=== PATIENT | male | born 1945 | race Caucasian/White ===

== ENCOUNTER 2020-09-10 21:43 | Inpatient (IN) ==
[2020-09-11] MEDS ORDERED: ONDANSETRON 4 MG/2 ML VIAL IV STA (00:22)
[2020-09-11] MEDS ORDERED: SODIUM CHLORIDE 0.9% 1,000 ML IV STA (00:22)
[2020-09-11 01:02] LABS: Basophils % 0.2 % (0.0-0.8); Hematocrit 51.2 VOL% (42.0-52.0); Hemoglobin 16.9 GM/DL (14.0-18.0); Immature Granulocytes % 0.4 %; Immature Granulocytes Absolute 0.04 #; Lymphocytes # 0.7 10*3/uL (1.4-4.0); Lymphocytes % 6.3 % (21.2-54.2); Mean Corpuscular Volume 89.8 FL (87-102); Mean Platelet Volume 10.1 FL (9.6-12.0); Monocytes % 11.3 % (1.7-12.7); Neutrophils % 81.8 % (38.7-73.9); Platelet Count 248 T/CUMM (130-400); Red Cell Distribution Width 16.4 % (9.3-17.3); White Blood Count 11.2 T/CUMM (4-12)
[2020-09-11] MEDS ORDERED: metroNIDAZOLE INJ 500 MG/100 ML PREMIX IV STA (01:10)
[2020-09-11 01:39] LABS: Albumin 3.6 G/DL (3.4-5.0); Bilirubin,Total 0.4 MG/DL (0.20-1.00); Calcium 10.5 MG/DL (8.5-10.1); Osmolality,Calculated 277.8 MOS/KG (273-304); Potassium 3.6 MMOL/L (3.5-5.1)
[2020-09-11 02:52] LABS: Bilirubin,Urine Negative (Negative); Blood, Urine Small mg/dL (Negative); Glucose,Urine (UA) Negative (Negative); Ketones,Urine Negative (Negative); Mucus,Urine Occasional /LPF (Occasional); Nitrite,Urine Negative (Negative); Protein,Urine 30 MG/DL; RBC,Urine 2 /HPF (0-4); Urine Appearance CLEAR (Clear); Urine Color Yellow (Yellow); Urine Specific Gravity 1.018 (1.001-1.035); Urine Urobilinogen < 2.0 EU/DL (0.2-1.0)
[2020-09-11] MEDS ORDERED: ONDANSETRON 4 MG/2 ML VIAL IV PRN (05:14)
[2020-09-11] MEDS ORDERED: GLUCAGON 1 MG VIAL IM PRN (05:14)
[2020-09-11] MEDS ORDERED: hydrALAZINE 20 MG/1 ML VIAL IV PRN (05:14)
[2020-09-11] MEDS ORDERED: diphenhydrAMINE CAP 25 MG CAPSULE PO PRN (05:14)
[2020-09-11] MEDS ORDERED: DEXTROSE 50% 25 GM/50 ML VIAL IV PRN (05:14)
[2020-09-11] MEDS ORDERED: SODIUM CHLORIDE 0.9% 1,000 ML IV SCH (05:30)
[2020-09-11] MEDS: ACETAMINOPHEN 325 MG TABLET PO PRN ×3 (06:45→22:00)
[2020-09-11] MEDS: CLOPIDOGREL 75 MG TABLET PO SCH (09:45)
[2020-09-11] MEDS: amLODIPine 5 MG TABLET PO SCH (09:45)
[2020-09-11] MEDS: hydrALAZINE 25 MG TABLET PO SCH ×3 (09:45→22:00)
[2020-09-11] MEDS: TAMSULOSIN 0.4 MG CAPSULE PO SCH (09:45)
[2020-09-11] MEDS: LEVOFLOXACIN INJ 500 MG/100 ML PREMIX IV SCH (11:00)
[2020-09-11] MEDS: SODIUM CHLORIDE 0.9% 1,000 ML IV SCH (11:00)
[2020-09-11] MEDS: metroNIDAZOLE INJ 500 MG/100 ML PREMIX IV SCH ×2 (12:00→22:00)
[2020-09-11] MEDS ORDERED: metroNIDAZOLE INJ 500 MG/100 ML PREMIX IV SCH (14:00)
[2020-09-11] MEDS: SIMVASTATIN 10 MG TABLET PO SCH (22:00)
[2020-09-12] MEDS: metroNIDAZOLE INJ 500 MG/100 ML PREMIX IV SCH ×3 (04:54→20:29)
[2020-09-12] MEDS: SODIUM CHLORIDE 0.9% 1,000 ML IV SCH (04:55)
[2020-09-12 05:23] LABS: Basophils % 0.2 % (0.0-0.8); Hematocrit 43.9 VOL% (42.0-52.0); Hemoglobin 14.9 GM/DL (14.0-18.0); Immature Granulocytes % 0.5 %; Immature Granulocytes Absolute 0.05 #; Lymphocytes # 0.6 10*3/uL (1.4-4.0); Mean Corpuscular HGB Conc 33.9 GM/DL (32-36); Mean Corpuscular Volume 89.8 FL (87-102); Mean Platelet Volume 10.2 FL (9.6-12.0); Monocytes % 10.3 % (1.7-12.7); Platelet Count 175 T/CUMM (130-400); Red Blood Count 4.89 MC/CUMM (3.8-5.5); White Blood Count 9.1 T/CUMM (4-12)
[2020-09-12 05:51] LABS: Albumin 2.6 G/DL (3.4-5.0); Calcium 8.9 MG/DL (8.5-10.1); Osmolality,Calculated 282.3 MOS/KG (273-304); Total Protein 5.4 G/DL (6.4-8.2)
[2020-09-12] MEDS ORDERED: POTASSIUM CHLORIDE 20 MEQ TABLET PO ONE (07:38)
[2020-09-12] MEDS: hydrALAZINE 25 MG TABLET PO SCH ×3 (08:59→20:28)
[2020-09-12] MEDS: amLODIPine 5 MG TABLET PO SCH (08:59)
[2020-09-12] MEDS: CLOPIDOGREL 75 MG TABLET PO SCH (08:59)
[2020-09-12] MEDS: EZETIMIBE 10 MG TABLET PO SCH (09:00)
[2020-09-12] MEDS: TAMSULOSIN 0.4 MG CAPSULE PO SCH (09:00)
[2020-09-12] MEDS: SODIUM CHLOR 0.9% KCL 40 MEQ 40 MEQ/1,000 ML BAG IV SCH (09:53)
[2020-09-12] MEDS: LEVOFLOXACIN INJ 500 MG/100 ML PREMIX IV SCH (11:02)
[2020-09-12] MEDS: ACETAMINOPHEN 325 MG TABLET PO PRN (12:11)
[2020-09-12] MEDS: SIMVASTATIN 10 MG TABLET PO SCH (20:28)
[2020-09-13] MEDS: SODIUM CHLOR 0.9% KCL 40 MEQ 40 MEQ/1,000 ML BAG IV SCH ×3 (02:26→20:24)
[2020-09-13] MEDS: metroNIDAZOLE INJ 500 MG/100 ML PREMIX IV SCH ×3 (03:39→20:22)
[2020-09-13 06:48] LABS: Basophils % 0.4 % (0.0-0.8); Eosinophils # 0.1 10*3/uL (0.0-0.87); Eosinophils % 0.7 % (0.00-10.9); Hematocrit 45.9 VOL% (42.0-52.0); Hemoglobin 15.2 GM/DL (14.0-18.0); Immature Granulocytes % 0.6 %; Immature Granulocytes Absolute 0.04 #; Lymphocytes % 14.8 % (21.2-54.2); Mean Corpuscular HGB Conc 33.1 GM/DL (32-36); Mean Platelet Volume 10.4 FL (9.6-12.0); Monocytes % 14.4 % (1.7-12.7); Neutrophils % 69.1 % (38.7-73.9); Platelet Count 186 T/CUMM (130-400); Red Cell Distribution Width 16.1 % (9.3-17.3)
[2020-09-13 07:16] LABS: Calcium 9.2 MG/DL (8.5-10.1); Potassium 3.8 MMOL/L (3.5-5.1)
[2020-09-13] MEDS: CLOPIDOGREL 75 MG TABLET PO SCH (09:07)
[2020-09-13] MEDS: EZETIMIBE 10 MG TABLET PO SCH (09:07)
[2020-09-13] MEDS: TAMSULOSIN 0.4 MG CAPSULE PO SCH (09:07)
[2020-09-13] MEDS: hydrALAZINE 25 MG TABLET PO SCH ×3 (09:33→20:24)
[2020-09-13] MEDS: amLODIPine 5 MG TABLET PO SCH (09:33)
[2020-09-13] MEDS: LEVOFLOXACIN INJ 500 MG/100 ML PREMIX IV SCH (11:35)
[2020-09-13] MEDS: ACETAMINOPHEN 325 MG TABLET PO PRN (16:28)
[2020-09-13] MEDS: SIMVASTATIN 10 MG TABLET PO SCH (20:24)
[2020-09-14] MEDS: metroNIDAZOLE INJ 500 MG/100 ML PREMIX IV SCH (04:58)
[2020-09-14 06:48] LABS: Basophils % 0.5 % (0.0-0.8); Eosinophils # 0.1 10*3/uL (0.0-0.87); Eosinophils % 1.9 % (0.00-10.9); Hemoglobin 14.9 GM/DL (14.0-18.0); Immature Granulocytes % 0.7 %; Immature Granulocytes Absolute 0.04 #; Lymphocytes # 0.9 10*3/uL (1.4-4.0); Lymphocytes % 15.5 % (21.2-54.2); Mean Corpuscular HGB Conc 33.1 GM/DL (32-36); Mean Corpuscular Volume 89.5 FL (87-102); Mean Platelet Volume 10.6 FL (9.6-12.0); Monocytes % 10.1 % (1.7-12.7); Neutrophils % 71.3 % (38.7-73.9); Platelet Count 193 T/CUMM (130-400); Red Blood Count 5.03 MC/CUMM (3.8-5.5); Red Cell Distribution Width 16.2 % (9.3-17.3); White Blood Count 5.9 T/CUMM (4-12)
[2020-09-14 07:14] LABS: Osmolality,Calculated 282.1 MOS/KG (273-304); Potassium 4.8 MMOL/L (3.5-5.1)
[2020-09-14] MEDS: SODIUM CHLOR 0.9% KCL 40 MEQ 40 MEQ/1,000 ML BAG IV SCH (07:56)
[2020-09-14] MEDS ORDERED: LEVOFLOXACIN 500 MG TABLET PO SCH (09:00)
[2020-09-14] MEDS: EZETIMIBE 10 MG TABLET PO SCH (09:33)
[2020-09-14] MEDS: amLODIPine 5 MG TABLET PO SCH (09:34)
[2020-09-14] MEDS: TAMSULOSIN 0.4 MG CAPSULE PO SCH (09:35)
[2020-09-14] MEDS: hydrALAZINE 25 MG TABLET PO SCH (09:35)
[2020-09-14] MEDS: CLOPIDOGREL 75 MG TABLET PO SCH (09:36)
[2020-09-14 11:38] VITALS: BP 161/75
[2020-09-14] MEDS ORDERED: metroNIDAZOLE 500 MG TABLET PO SCH (14:00)
== END 2020-09-14 12:25 | disposition home or self-care (01) | DRG 392 ==
LOC: N.ED 21:43 → N.EDINP 21:43 → SUATTDRO 09-11 05:14 → N.3E 09-11 10:46 → SUATTDRO 09-12 09:07
PROVIDERS: ADMIT Internal Medicine; ATTEND Internal Medicine

== ENCOUNTER 2021-10-01 12:23 | Inpatient (IN) ==
[2021-10-01] MEDS ORDERED: SODIUM CHLORIDE 0.9% 1,000 ML IV STA ×2 (15:10→16:28)
[2021-10-01 15:59] LABS: Basophils # 0.1 10*3/uL (0.0-0.2); Basophils % 0.3 % (0.0-0.8); Eosinophils % 0.1 % (0.00-10.9); Hematocrit 46.1 VOL% (42.0-52.0); Hemoglobin 16.2 GM/DL (14.0-18.0); Immature Granulocytes % 0.8 %; Immature Granulocytes Absolute 0.12 #; Lymphocytes # 1.5 10*3/uL (1.4-4.0); Mean Corpuscular HGB Conc 35.1 GM/DL (32-36); Mean Corpuscular Volume 89.7 FL (87-102); Mean Platelet Volume 10.4 FL (9.6-12.0); Monocytes # 1.9 10*3/uL (0.11-0.8); Monocytes % 12.7 % (1.7-12.7); Neutrophils % 76.1 % (38.7-73.9); Platelet Count 491 T/CUMM (130-400); Red Blood Count 5.14 MC/CUMM (3.8-5.5); Red Cell Distribution Width 14.8 % (9.3-17.3); White Blood Count 15.1 T/CUMM (4-12)
[2021-10-01 16:21] LABS: Albumin 3.2 G/DL (3.4-5.0); Bilirubin,Total 0.4 MG/DL (0.20-1.00); Calcium 12.7 MG/DL (8.5-10.1); Osmolality,Calculated 293.2 MOS/KG (273-304); Total Protein 6.4 G/DL (6.4-8.2)
[2021-10-01] MEDS ORDERED: POTASSIUM CHLORIDE 20 MEQ TABLET PO STA (16:25)
[2021-10-01] MEDS ORDERED: SIMETHICONE CHEW 125 MG TABLET PO PRN (16:57)
[2021-10-01] MEDS ORDERED: BISACODYL 5 MG TABLET PO PRN (16:57)
[2021-10-01] MEDS ORDERED: ALUMINUM/MAGNES/SIMETH MAX STR 30 ML UDCUP PO PRN (16:57)
[2021-10-01] MEDS ORDERED: ONDANSETRON 4 MG/2 ML VIAL IV PRN (16:57)
[2021-10-01] MEDS ORDERED: GLUCAGON 1 MG VIAL IM PRN (16:57)
[2021-10-01] MEDS ORDERED: ALBUTEROL 2.5 MG/3 ML NEB RESP TX PRN (16:57)
[2021-10-01] MEDS ORDERED: SODIUM CHLORIDE 0.9% 1,000 ML IV SCH (17:00)
[2021-10-01] MEDS ORDERED: DEXTROSE 10% 250 ML BAG IV PRN (17:04)
[2021-10-01 18:50] LABS: RBC,Urine 1 /HPF (0-4)
[2021-10-01 18:51] LABS: Bilirubin,Urine Negative (Negative); Blood, Urine Negative (Negative); Glucose,Urine (UA) >=1000 mg/dL (Negative); Ketones,Urine Negative (Negative); Nitrite,Urine Negative (Negative); Protein,Urine Negative (Negative); Urine Appearance Clear (Clear); Urine Color Yellow (Yellow); Urine Specific Gravity 1.015 (1.001-1.035); Urine Urobilinogen 0.2 eU/dL (<2.0)
[2021-10-01] MEDS: POTASSIUM CHLORIDE RIDER 10 MEQ/100 ML PREMIX IV SCH ×2 (18:52→20:21)
[2021-10-01 20:22] LABS: Calcium 11.4 MG/DL (8.5-10.1); Osmolality,Calculated 293.2 MOS/KG (273-304)
[2021-10-01 20:33] LABS: Potassium 2.5 MMOL/L (3.5-5.1)
[2021-10-01] MEDS ORDERED: POTASSIUM CHLORIDE 20 MEQ TABLET PO ONE (20:39)
[2021-10-01] MEDS: DOCUSATE SODIUM 100 MG CAPSULE PO SCH (21:41)
[2021-10-01] MEDS: SUCRALFATE 1 GM TABLET PO SCH (21:41)
[2021-10-01] MEDS: INSULIN GLARGINE 100 UNIT/ML SUBCUT SCH (21:41)
[2021-10-01] MEDS: INSULIN REGULAR 100 UNIT/ML SUBCUT SCH (21:42)
[2021-10-01] MEDS: POTASSIUM BICARB EFFERVESCENT 20 MEQ TAB.EFF PO SCH (22:06)
[2021-10-01] MEDS: SODIUM CHLOR 0.9% KCL 20 MEQ 20 MEQ/1,000 ML BAG IV SCH (22:25)
[2021-10-02 01:04] LABS: Basophils % 0.3 % (0.0-0.8); Eosinophils # 0.1 10*3/uL (0.0-0.87); Eosinophils % 0.8 % (0.00-10.9); Hematocrit 42.2 VOL% (42.0-52.0); Hemoglobin 14.7 GM/DL (14.0-18.0); Immature Granulocytes % 0.7 %; Immature Granulocytes Absolute 0.08 #; Lymphocytes # 1.8 10*3/uL (1.4-4.0); Lymphocytes % 15.3 % (21.2-54.2); Mean Corpuscular HGB Conc 34.8 GM/DL (32-36); Mean Corpuscular Volume 90.8 FL (87-102); Mean Platelet Volume 10.3 FL (9.6-12.0); Monocytes # 1.3 10*3/uL (0.11-0.8); Monocytes % 10.7 % (1.7-12.7); Neutrophils % 72.2 % (38.7-73.9); Platelet Count 411 T/CUMM (130-400); Red Blood Count 4.65 MC/CUMM (3.8-5.5); Red Cell Distribution Width 14.9 % (9.3-17.3); White Blood Count 11.8 T/CUMM (4-12)
[2021-10-02 01:30] LABS: Calcium 11.7 MG/DL (8.5-10.1); Risk Ratio 2.37; Thyroid Stimulating Hormone 1.28 uIU/ml (0.358-3.74); VLDL Cholesterol 22.8 MG/DL
[2021-10-02 01:32] LABS: Potassium 2.4 MMOL/L (3.5-5.1)
[2021-10-02] MEDS: POTASSIUM CHLORIDE RIDER 10 MEQ/100 ML PREMIX IV PRN ×9 (01:51→23:59)
[2021-10-02] MEDS: INSULIN REGULAR 100 UNIT/ML SUBCUT SCH ×4 (08:05→20:41)
[2021-10-02] MEDS: POTASSIUM BICARB EFFERVESCENT 20 MEQ TAB.EFF PO SCH ×2 (08:44→21:47)
[2021-10-02] MEDS: EZETIMIBE 10 MG TABLET PO SCH (08:44)
[2021-10-02] MEDS: PANTOPRAZOLE 40 MG TABLET PO SCH (08:44)
[2021-10-02] MEDS: ASPIRIN 325 MG TABLET PO SCH (08:44)
[2021-10-02] MEDS: DOCUSATE SODIUM 100 MG CAPSULE PO SCH ×2 (08:44→20:41)
[2021-10-02] MEDS: CETIRIZINE 10 MG TABLET PO SCH (08:44)
[2021-10-02] MEDS: MONTELUKAST 10 MG TABLET PO SCH (08:44)
[2021-10-02] MEDS: THEOPHYLLINE ER (24 HR) 400 MG TABLET PO SCH (08:44)
[2021-10-02] MEDS: SUCRALFATE 1 GM TABLET PO SCH ×4 (08:44→20:41)
[2021-10-02] MEDS: TAMSULOSIN 0.4 MG CAPSULE PO SCH (08:44)
[2021-10-02] MEDS: hydrALAZINE 25 MG TABLET PO SCH ×2 (08:47→20:41)
[2021-10-02] MEDS ORDERED: POTASSIUM CHLORIDE 20 MEQ TABLET PO ONE (10:00)
[2021-10-02] MEDS: ACETAMINOPHEN 325 MG TABLET PO PRN ×2 (12:26→20:39)
[2021-10-02] MEDS: LACTULOSE 20 GM/30 ML UDCUP PO SCH ×2 (12:27→20:39)
[2021-10-02 13:06] LABS: Arterial Base Excess iSTAT 14 MMOL/L (-2.5-2.5); Arterial Bicarbonate iSTAT 38.8 MMOL/L (20-26); Arterial O2 Saturation iSTAT 96 % (95-100); Arterial PCO2 iSTAT 45 MM HG (35-48); Arterial PO2 iSTAT 76 MM HG (80-95); Arterial Total CO2 iSTAT 40 MMO/L (23-27); Arterial pH iSTAT 7.542 (7.35-7.45)
[2021-10-02] MEDS: INSULIN GLARGINE 100 UNIT/ML SUBCUT SCH (20:42)
[2021-10-03] MEDS: POTASSIUM CHLORIDE RIDER 10 MEQ/100 ML PREMIX IV PRN (02:12)
[2021-10-03 06:55] LABS: Basophils # 0.1 10*3/uL (0.0-0.2); Basophils % 0.8 % (0.0-0.8); Eosinophils # 0.2 10*3/uL (0.0-0.87); Hematocrit 46.5 VOL% (42.0-52.0); Hemoglobin 15.6 GM/DL (14.0-18.0); Immature Granulocytes % 0.5 %; Immature Granulocytes Absolute 0.05 #; Lymphocytes # 1.7 10*3/uL (1.4-4.0); Lymphocytes % 18.3 % (21.2-54.2); Mean Corpuscular HGB Conc 33.5 GM/DL (32-36); Mean Corpuscular Volume 94.5 FL (87-102); Mean Platelet Volume 10.3 FL (9.6-12.0); Monocytes # 0.9 10*3/uL (0.11-0.8); Monocytes % 9.9 % (1.7-12.7); Neutrophils % 68.5 % (38.7-73.9); Platelet Count 398 T/CUMM (130-400); Red Blood Count 4.92 MC/CUMM (3.8-5.5); White Blood Count 9.1 T/CUMM (4-12)
[2021-10-03 07:12] LABS: Phosphorous 2.1 MG/DL (2.5-4.9); Uric Acid 10.3 MG/DL (3.5-7.2)
[2021-10-03 07:14] LABS: Albumin 2.9 G/DL (3.4-5.0); Bilirubin,Total 0.4 MG/DL (0.20-1.00); Calcium 12.7 MG/DL (8.5-10.1); Potassium 3.3 MMOL/L (3.5-5.1); Total Protein 5.4 G/DL (6.4-8.2)
[2021-10-03 07:23] LABS: Total Protein 5.8 G/DL (6.4-8.2)
[2021-10-03] MEDS: SODIUM CHLOR 0.9% KCL 20 MEQ 20 MEQ/1,000 ML BAG IV SCH ×3 (08:00→15:02)
[2021-10-03] MEDS: INSULIN REGULAR 100 UNIT/ML SUBCUT SCH ×4 (08:02→21:20)
[2021-10-03] MEDS: EZETIMIBE 10 MG TABLET PO SCH (09:48)
[2021-10-03] MEDS: CETIRIZINE 10 MG TABLET PO SCH (09:48)
[2021-10-03] MEDS: MONTELUKAST 10 MG TABLET PO SCH (09:48)
[2021-10-03] MEDS: LACTULOSE 20 GM/30 ML UDCUP PO SCH (09:48)
[2021-10-03] MEDS: hydrALAZINE 25 MG TABLET PO SCH ×2 (09:48→21:24)
[2021-10-03] MEDS: THEOPHYLLINE ER (24 HR) 400 MG TABLET PO SCH (09:48)
[2021-10-03] MEDS: PANTOPRAZOLE 40 MG TABLET PO SCH (09:48)
[2021-10-03] MEDS: DOCUSATE SODIUM 100 MG CAPSULE PO SCH ×2 (09:48→21:23)
[2021-10-03] MEDS: TAMSULOSIN 0.4 MG CAPSULE PO SCH (09:48)
[2021-10-03] MEDS: POTASSIUM BICARB EFFERVESCENT 20 MEQ TAB.EFF PO SCH ×2 (09:48→21:21)
[2021-10-03] MEDS: SUCRALFATE 1 GM TABLET PO SCH ×4 (09:48→21:24)
[2021-10-03] MEDS: ASPIRIN 325 MG TABLET PO SCH (09:48)
[2021-10-03] MEDS ORDERED: LACTULOSE 20 GM/30 ML UDCUP PO PRN (11:53)
[2021-10-03] MEDS ORDERED: POTASSIUM CHLORIDE 20 MEQ TABLET PO ONE (11:59)
[2021-10-03] MEDS: INSULIN GLARGINE 100 UNIT/ML SUBCUT SCH (21:20)
[2021-10-03] MEDS: ACETAMINOPHEN 325 MG TABLET PO PRN (21:23)
[2021-10-04] MEDS: SODIUM CHLORIDE 0.9% 1,000 ML IV SCH ×4 (05:30→20:49)
[2021-10-04 08:05] LABS: Basophils # 0.1 10*3/uL (0.0-0.2); Basophils % 0.8 % (0.0-0.8); Eosinophils # 0.3 10*3/uL (0.0-0.87); Hematocrit 44.8 VOL% (42.0-52.0); Hemoglobin 15.3 GM/DL (14.0-18.0); Immature Granulocytes % 0.6 %; Immature Granulocytes Absolute 0.05 #; Lymphocytes # 1.9 10*3/uL (1.4-4.0); Lymphocytes % 22.9 % (21.2-54.2); Mean Corpuscular HGB Conc 34.2 GM/DL (32-36); Mean Corpuscular Volume 92.2 FL (87-102); Mean Platelet Volume 10.6 FL (9.6-12.0); Monocytes # 0.8 10*3/uL (0.11-0.8); Monocytes % 9.7 % (1.7-12.7); Platelet Count 389 T/CUMM (130-400); Red Blood Count 4.86 MC/CUMM (3.8-5.5); Red Cell Distribution Width 14.8 % (9.3-17.3); White Blood Count 8.4 T/CUMM (4-12)
[2021-10-04 08:29] LABS: Osmolality,Calculated 281.5 MOS/KG (273-304)
[2021-10-04] MEDS: INSULIN REGULAR 100 UNIT/ML SUBCUT SCH ×4 (08:57→20:50)
[2021-10-04] MEDS: SODIUM CHLOR 0.9% KCL 20 MEQ 20 MEQ/1,000 ML BAG IV SCH ×2 (08:58→18:17)
[2021-10-04] MEDS: DOCUSATE SODIUM 100 MG CAPSULE PO SCH ×2 (10:12→20:50)
[2021-10-04] MEDS: THEOPHYLLINE ER (24 HR) 400 MG TABLET PO SCH (10:12)
[2021-10-04] MEDS: ASPIRIN 325 MG TABLET PO SCH (10:12)
[2021-10-04] MEDS: SUCRALFATE 1 GM TABLET PO SCH ×4 (10:12→20:50)
[2021-10-04] MEDS: POTASSIUM BICARB EFFERVESCENT 20 MEQ TAB.EFF PO SCH ×2 (10:12→20:50)
[2021-10-04] MEDS: PANTOPRAZOLE 40 MG TABLET PO SCH (10:12)
[2021-10-04] MEDS: TAMSULOSIN 0.4 MG CAPSULE PO SCH (10:12)
[2021-10-04] MEDS: hydrALAZINE 25 MG TABLET PO SCH ×2 (10:12→20:50)
[2021-10-04] MEDS: EZETIMIBE 10 MG TABLET PO SCH (10:12)
[2021-10-04] MEDS: MONTELUKAST 10 MG TABLET PO SCH (10:12)
[2021-10-04] MEDS: CETIRIZINE 10 MG TABLET PO SCH (10:13)
[2021-10-04] MEDS ORDERED: POTASSIUM CHLORIDE 20 MEQ TABLET PO ONE (10:41)
[2021-10-04] MEDS: POTASSIUM CHLORIDE RIDER 10 MEQ/100 ML PREMIX IV PRN ×4 (13:06→17:07)
[2021-10-04] MEDS: LIDOCAINE 5% PATCH TRANSDERM SCH (15:54)
[2021-10-04] MEDS: INSULIN GLARGINE 100 UNIT/ML SUBCUT SCH (20:50)
[2021-10-05] MEDS: SODIUM CHLORIDE 0.9% 1,000 ML IV SCH ×6 (01:57→23:52)
[2021-10-05 05:11] LABS: Basophils # 0.1 10*3/uL (0.0-0.2); Basophils % 1.1 % (0.0-0.8); Eosinophils # 0.3 10*3/uL (0.0-0.87); Hematocrit 40.4 VOL% (42.0-52.0); Hemoglobin 13.6 GM/DL (14.0-18.0); Immature Granulocytes % 0.6 %; Immature Granulocytes Absolute 0.04 #; Lymphocytes # 1.4 10*3/uL (1.4-4.0); Lymphocytes % 22.1 % (21.2-54.2); Mean Corpuscular HGB Conc 33.7 GM/DL (32-36); Mean Corpuscular Volume 93.7 FL (87-102); Mean Platelet Volume 10.5 FL (9.6-12.0); Monocytes # 0.7 10*3/uL (0.11-0.8); Monocytes % 11.1 % (1.7-12.7); Neutrophils % 61.1 % (38.7-73.9); Platelet Count 340 T/CUMM (130-400); Red Blood Count 4.31 MC/CUMM (3.8-5.5); Red Cell Distribution Width 14.8 % (9.3-17.3); White Blood Count 6.5 T/CUMM (4-12)
[2021-10-05 05:25] LABS: Calcium 11.8 MG/DL (8.5-10.1); Osmolality,Calculated 285.3 MOS/KG (273-304); Potassium 3.9 MMOL/L (3.5-5.1)
[2021-10-05 07:45] LABS: Immunoglobulin A (Chem) 71 MG/DL (70-400); Immunoglobulin G (Chem) 567 MG/DL (700-1600); Immunoglobulin M (Chem) 25 MG/DL (40-230); Total Protein (Chem) 5.8 G/DL (6.4-8.3)
[2021-10-05 09:00] LABS: Albumin (SPE) 3.6 G/DL (3.2-5.3); Albumin (SPE) Rel % 62.4 %; Alpha 1 (SPE) 0.2 G/DL (0.1-0.4); Alpha 1 (SPE) Rel % 3.6 %; Alpha 2 (SPE) 0.8 G/DL (0.4-1.0); Alpha 2 (SPE) Rel % 13.4 %; Beta (SPE) 0.7 G/DL (0.5-1.1); Beta (SPE) Rel % 12.1 %; Gamma (SPE) 0.5 G/DL (0.7-1.7); Gamma (SPE) Rel % 8.5 %
[2021-10-05] MEDS: INSULIN REGULAR 100 UNIT/ML SUBCUT SCH ×4 (09:19→21:55)
[2021-10-05] MEDS: THEOPHYLLINE ER (24 HR) 400 MG TABLET PO SCH (09:20)
[2021-10-05] MEDS: hydrALAZINE 25 MG TABLET PO SCH ×2 (09:20→21:54)
[2021-10-05] MEDS: CETIRIZINE 10 MG TABLET PO SCH (09:21)
[2021-10-05] MEDS: POTASSIUM BICARB EFFERVESCENT 20 MEQ TAB.EFF PO SCH ×2 (09:22→21:54)
[2021-10-05] MEDS: TAMSULOSIN 0.4 MG CAPSULE PO SCH (09:22)
[2021-10-05] MEDS: SUCRALFATE 1 GM TABLET PO SCH ×4 (09:22→21:54)
[2021-10-05] MEDS: EZETIMIBE 10 MG TABLET PO SCH (09:22)
[2021-10-05] MEDS: PANTOPRAZOLE 40 MG TABLET PO SCH (09:22)
[2021-10-05] MEDS: MONTELUKAST 10 MG TABLET PO SCH (09:22)
[2021-10-05] MEDS: DOCUSATE SODIUM 100 MG CAPSULE PO SCH ×2 (09:22→21:54)
[2021-10-05] MEDS: ASPIRIN 325 MG TABLET PO SCH (09:22)
[2021-10-05] MEDS: LIDOCAINE 5% PATCH TRANSDERM SCH (09:23)
[2021-10-05] MEDS: SODIUM CHLOR 0.9% KCL 20 MEQ 20 MEQ/1,000 ML BAG IV SCH (09:28)
[2021-10-05 11:55] LABS: Bacteria,Urine Occasional /HPF (Few); Mucus,Urine Occasional /LPF (Occasional); RBC,Urine 1 /HPF (0-4)
[2021-10-05 11:57] LABS: Urine Appearance Clear (Clear); Urine Color Yellow (Yellow); Urine Specific Gravity 1.015 (1.001-1.035); Urine pH 7.5 (4.5-8.0)
[2021-10-05 11:58] LABS: Bilirubin,Urine Negative (Negative); Blood, Urine Negative (Negative); Glucose,Urine (UA) Negative (Negative); Ketones,Urine Negative (Negative); Nitrite,Urine Negative (Negative); Protein,Urine Negative (Negative); Urine Urobilinogen < 2.0 eU/dL (<2.0)
[2021-10-05] MEDS: INSULIN GLARGINE 100 UNIT/ML SUBCUT SCH (21:54)
[2021-10-05] MEDS: POTASSIUM PHOS/SOD PHOS 250 MG TABLET PO SCH (21:54)
[2021-10-05] MEDS: OLOPATADINE 0.1% OPH SOLN 5 ML BOTTLE BOTH EYES SCH (21:55)
[2021-10-06] MEDS: SODIUM CHLOR 0.9% KCL 20 MEQ 20 MEQ/1,000 ML BAG IV SCH ×2 (02:21→16:33)
[2021-10-06] MEDS: CARBOXYMETHYLCELLULOSE 1% OPH SOLN BOTH EYES PRN ×2 (03:25→10:12)
[2021-10-06] MEDS: SODIUM CHLORIDE 0.9% 1,000 ML IV SCH ×3 (03:57→16:33)
[2021-10-06 05:26] LABS: Basophils # 0.1 10*3/uL (0.0-0.2); Basophils % 0.9 % (0.0-0.8); Eosinophils # 0.4 10*3/uL (0.0-0.87); Eosinophils % 4.1 % (0.00-10.9); Hematocrit 43.2 VOL% (42.0-52.0); Hemoglobin 14.4 GM/DL (14.0-18.0); Immature Granulocytes % 0.7 %; Immature Granulocytes Absolute 0.06 #; Lymphocytes # 1.4 10*3/uL (1.4-4.0); Mean Corpuscular HGB Conc 33.3 GM/DL (32-36); Mean Corpuscular Volume 94.3 FL (87-102); Mean Platelet Volume 10.7 FL (9.6-12.0); Monocytes # 0.8 10*3/uL (0.11-0.8); Monocytes % 8.9 % (1.7-12.7); Neutrophils % 69.4 % (38.7-73.9); Platelet Count 313 T/CUMM (130-400); Red Blood Count 4.58 MC/CUMM (3.8-5.5); Red Cell Distribution Width 14.9 % (9.3-17.3)
[2021-10-06 05:43] LABS: Potassium 4.2 MMOL/L (3.5-5.1)
[2021-10-06 07:09] LABS: Random Urine Protein (Bench) 16 MG/DL (<11.9)
[2021-10-06] MEDS: INSULIN REGULAR 100 UNIT/ML SUBCUT SCH ×4 (07:50→20:38)
[2021-10-06] MEDS: hydrALAZINE 25 MG TABLET PO SCH ×3 (10:11→20:38)
[2021-10-06] MEDS: THEOPHYLLINE ER (24 HR) 400 MG TABLET PO SCH (10:11)
[2021-10-06] MEDS: LIDOCAINE 5% PATCH TRANSDERM SCH (10:11)
[2021-10-06] MEDS: CETIRIZINE 10 MG TABLET PO SCH (10:11)
[2021-10-06] MEDS: ASPIRIN 325 MG TABLET PO SCH (10:11)
[2021-10-06] MEDS: POTASSIUM PHOS/SOD PHOS 250 MG TABLET PO SCH ×4 (10:11→20:37)
[2021-10-06] MEDS: EZETIMIBE 10 MG TABLET PO SCH (10:11)
[2021-10-06] MEDS: PANTOPRAZOLE 40 MG TABLET PO SCH (10:11)
[2021-10-06] MEDS: SUCRALFATE 1 GM TABLET PO SCH ×4 (10:12→20:38)
[2021-10-06] MEDS: DOCUSATE SODIUM 100 MG CAPSULE PO SCH ×2 (10:12→20:37)
[2021-10-06] MEDS: TAMSULOSIN 0.4 MG CAPSULE PO SCH (10:12)
[2021-10-06] MEDS: MONTELUKAST 10 MG TABLET PO SCH (10:12)
[2021-10-06] MEDS: POTASSIUM BICARB EFFERVESCENT 20 MEQ TAB.EFF PO SCH ×2 (10:12→20:38)
[2021-10-06] MEDS ORDERED: FUROSEMIDE 40 MG/4 ML VIAL IV ONE (10:33)
[2021-10-06] MEDS: ACETAMINOPHEN 325 MG TABLET PO PRN (10:45)
[2021-10-06] MEDS: OLOPATADINE 0.1% OPH SOLN 5 ML BOTTLE BOTH EYES SCH ×2 (10:46→20:39)
[2021-10-06 14:56] LABS: Kappa Free Light Chain 1.78 mg/dL; Lambda Free Light Chain 2.58 mg/dL
[2021-10-06] MEDS: INSULIN GLARGINE 100 UNIT/ML SUBCUT SCH (20:39)
[2021-10-07 06:09] LABS: Basophils # 0.1 10*3/uL (0.0-0.2); Basophils % 0.8 % (0.0-0.8); Eosinophils # 0.3 10*3/uL (0.0-0.87); Eosinophils % 3.8 % (0.00-10.9); Hematocrit 40.9 VOL% (42.0-52.0); Hemoglobin 13.5 GM/DL (14.0-18.0); Immature Granulocytes % 0.6 %; Immature Granulocytes Absolute 0.05 #; Lymphocytes # 1.5 10*3/uL (1.4-4.0); Lymphocytes % 17.4 % (21.2-54.2); Mean Platelet Volume 9.9 FL (9.6-12.0); Monocytes # 0.9 10*3/uL (0.11-0.8); Monocytes % 10.3 % (1.7-12.7); Neutrophils % 67.1 % (38.7-73.9); Platelet Count 346 T/CUMM (130-400); Red Blood Count 4.26 MC/CUMM (3.8-5.5); White Blood Count 8.5 T/CUMM (4-12)
[2021-10-07 06:23] LABS: Calcium 11.7 MG/DL (8.5-10.1); Osmolality,Calculated 286.8 MOS/KG (273-304); Potassium 3.6 MMOL/L (3.5-5.1)
[2021-10-07] MEDS: INSULIN REGULAR 100 UNIT/ML SUBCUT SCH ×4 (08:06→21:00)
[2021-10-07] MEDS: hydrALAZINE 25 MG TABLET PO SCH ×3 (09:30→20:59)
[2021-10-07] MEDS: PANTOPRAZOLE 40 MG TABLET PO SCH (09:30)
[2021-10-07] MEDS: DOCUSATE SODIUM 100 MG CAPSULE PO SCH ×2 (09:30→20:59)
[2021-10-07] MEDS: POTASSIUM BICARB EFFERVESCENT 20 MEQ TAB.EFF PO SCH ×2 (09:30→21:00)
[2021-10-07] MEDS: LIDOCAINE 5% PATCH TRANSDERM SCH (09:30)
[2021-10-07] MEDS: THEOPHYLLINE ER (24 HR) 400 MG TABLET PO SCH (09:30)
[2021-10-07] MEDS: MONTELUKAST 10 MG TABLET PO SCH (09:30)
[2021-10-07] MEDS: CETIRIZINE 10 MG TABLET PO SCH (09:30)
[2021-10-07] MEDS: TAMSULOSIN 0.4 MG CAPSULE PO SCH (09:30)
[2021-10-07] MEDS: SUCRALFATE 1 GM TABLET PO SCH ×4 (09:31→20:58)
[2021-10-07] MEDS: CARBOXYMETHYLCELLULOSE 1% OPH SOLN BOTH EYES PRN (09:31)
[2021-10-07] MEDS: POTASSIUM PHOS/SOD PHOS 250 MG TABLET PO SCH ×4 (09:31→20:59)
[2021-10-07] MEDS: EZETIMIBE 10 MG TABLET PO SCH (09:31)
[2021-10-07] MEDS: OLOPATADINE 0.1% OPH SOLN 5 ML BOTTLE BOTH EYES SCH ×2 (09:32→21:02)
[2021-10-07] MEDS: ASPIRIN 325 MG TABLET PO SCH (09:33)
[2021-10-07] MEDS: INSULIN GLARGINE 100 UNIT/ML SUBCUT SCH (20:59)
[2021-10-08 05:22] LABS: Basophils # 0.1 10*3/uL (0.0-0.2); Eosinophils # 0.4 10*3/uL (0.0-0.87); Eosinophils % 5.1 % (0.00-10.9); Hematocrit 39.2 VOL% (42.0-52.0); Hemoglobin 12.8 GM/DL (14.0-18.0); Immature Granulocytes % 0.4 %; Immature Granulocytes Absolute 0.03 #; Lymphocytes # 1.5 10*3/uL (1.4-4.0); Lymphocytes % 18.2 % (21.2-54.2); Mean Corpuscular HGB Conc 32.7 GM/DL (32-36); Mean Corpuscular Volume 96.1 FL (87-102); Monocytes % 11.7 % (1.7-12.7); Neutrophils % 63.6 % (38.7-73.9); Platelet Count 337 T/CUMM (130-400); Red Blood Count 4.08 MC/CUMM (3.8-5.5); Red Cell Distribution Width 14.9 % (9.3-17.3); White Blood Count 8.1 T/CUMM (4-12)
[2021-10-08 05:35] LABS: Calcium 11.8 MG/DL (8.5-10.1); Osmolality,Calculated 283.1 MOS/KG (273-304); Potassium 3.7 MMOL/L (3.5-5.1)
[2021-10-08] MEDS: INSULIN REGULAR 100 UNIT/ML SUBCUT SCH ×2 (08:12→11:16)
[2021-10-08] MEDS: SUCRALFATE 1 GM TABLET PO SCH (09:33)
[2021-10-08] MEDS: POTASSIUM PHOS/SOD PHOS 250 MG TABLET PO SCH (09:33)
[2021-10-08] MEDS: hydrALAZINE 25 MG TABLET PO SCH (09:33)
[2021-10-08] MEDS: LIDOCAINE 5% PATCH TRANSDERM SCH (09:33)
[2021-10-08] MEDS: ASPIRIN 325 MG TABLET PO SCH (09:33)
[2021-10-08] MEDS: DOCUSATE SODIUM 100 MG CAPSULE PO SCH (09:33)
[2021-10-08] MEDS: POTASSIUM BICARB EFFERVESCENT 20 MEQ TAB.EFF PO SCH (09:33)
[2021-10-08] MEDS: TAMSULOSIN 0.4 MG CAPSULE PO SCH (09:33)
[2021-10-08] MEDS: PANTOPRAZOLE 40 MG TABLET PO SCH (09:34)
[2021-10-08] MEDS: MONTELUKAST 10 MG TABLET PO SCH (09:34)
[2021-10-08] MEDS: OLOPATADINE 0.1% OPH SOLN 5 ML BOTTLE BOTH EYES SCH (09:34)
[2021-10-08] MEDS: CETIRIZINE 10 MG TABLET PO SCH (09:34)
[2021-10-08] MEDS: THEOPHYLLINE ER (24 HR) 400 MG TABLET PO SCH (09:34)
[2021-10-08] MEDS: EZETIMIBE 10 MG TABLET PO SCH (09:34)
[2021-10-08 11:29] VITALS: BP 127/54
== END 2021-10-08 11:50 | disposition swing bed (61) | DRG 682 ==
LOC: N.ED 12:23 → N.EDINP 16:57 → N.3E 20:11
PROVIDERS: ADMIT Internal Medicine; ATTEND Internal Medicine